=== PATIENT | male | born 1945 | race Caucasian/White ===

== ENCOUNTER 2019-06-02 20:46 | Emergency (ER) | payer OTHER, BC ==
[~2019-06-02] VITALS: Ht 188 cm; Wt 90.7 kg
[2019-06-02 20:53] VITALS: BP_SYST 147
[2019-06-02] MEDS ORDERED: LOSA1TAB40 PO (20:59)
[2019-06-02] MEDS ORDERED: AMLO5TAB4 PO (20:59)
[2019-06-02] MEDS ORDERED: IPRATROPIUM/ALBUTEROL SULFATE 3 ML AMPUL.NEB (DUONEB) INH ONE (21:00)
[2019-06-02 21:21] LABS: BASOPHILS % (AUTO) 0.3 % (0.0-2.0); EOSINOPHILS # (AUTO) 0.1 K/uL (0.0-0.4); EOSINOPHILS % (AUTO) 0.7 % (0.0-4.0); HEMATOCRIT 47.7 % (36-54); HEMOGLOBIN 15.5 g/dL (14.0-18.0); LYMPHOCYTES # (AUTO) 1.3 K/uL (1.0-5.5); LYMPHOCYTES % (AUTO) 10.5 % (20.5-51.5); MEAN CORPUSCULAR HEMOGLOBIN 31 pg (27-31); MEAN CORPUSCULAR HGB CONC 33 % (32-36); MEAN CORPUSCULAR VOLUME 95 fL (79.0-98.0); MONOCYTES # (AUTO) 1.1 K/uL (0.0-1.0); NEUTROPHILS # (AUTO) 9.6 K/uL (1.8-7.7); NEUTROPHILS % (AUTO) 79.5 % (40.0-70.0); PLATELET COUNT (AUTO) 304 K/uL (130-430); RED BLOOD CELL COUNT(AUTO) 5.05 MIL/uL (4.2-6.2); RED CELL DISTRIBUTION WIDTH 15.5 % (9.0-15.0); WHITE BLOOD COUNT (AUTO) 12.1 K/uL (4.8-10.8)
[2019-06-02 21:25] LABS: ANION GAP 9 (5-15); CALCIUM 8.9 mg/dL (8.4-11.0); CHLORIDE 97 mmol/L (98-107); CREATININE 1.01 mg/dL (0.55-1.30); GLUCOSE 103 mg/dL (70-99); SODIUM SERUM 137 mmol/L (136-145); UREA NITROGEN, BLOOD 15 mg/dL (8-21)
[2019-06-02 21:31] LABS: ALANINE AMINOTRANSFERASE 25 U/L (12-78); ASPARTATE AMINOTRANSFERASE 21 U/L (10-37); TOTAL BILIRUBIN 0.6 mg/dL (0.0-1.0)
[2019-06-02 21:33] LABS: BILIRUBIN,URINE NEGATIVE (NEGATIVE); BLOOD, URINE NEGATIVE (NEGATIVE); CLARITY/URINE CLEAR (CLEAR); COLOR,URINE YELLOW (YELLOW); GLUCOSE,URINE NEGATIVE (NEGATIVE); KETONES,URINE NEGATIVE (NEGATIVE); LEUKOCYTE ESTERASE ,URINE NEGATIVE (NEGATIVE); NITRITE, URINE NEGATIVE (NEGATIVE); PH,URINE 6.5 (5.0-8.0); PROTEIN URINE 1+ (NEGATIVE)
[2019-06-02 21:44] LABS: BACTERIA,URINE FEW /HPF (None Seen); RBC,URINE 0-3 /HPF (0-3); WBC,URINE 0-3 /HPF (0-3)
[2019-06-02 23:21] VITALS: BP_SYST 147
== END 2019-06-02 23:23 | disposition home or self-care (01) ==
LOC: SED 20:46
DX: L03.116 Cellulitis of left lower limb (principal); J18.9 Pneumonia, unspecified organism; I10 Essential (primary) hypertension; F17.210 Nicotine dependence, cigarettes, uncomplicated; Z85.828 Personal history of other malignant neoplasm of skin; Z79.899 Other long term (current) drug therapy; Z71.6 Tobacco abuse counseling
CPT/HCPCS: 36415; 71045; 80053; 81000; 83605; 83880; 85025; 87040; 87086; 93005; 94640; 96365; 96366; 99284; J1956; J7620

== ENCOUNTER 2019-07-25 11:24 | Inpatient (IN) | payer OTHER, BC ==
[~2019-07-25] VITALS: Ht 188 cm; Wt 151.5 kg
[~2019-07-25 11:24] MED LIST: AMLO5TAB4 PO; LOSA1TAB40 PO
[2019-07-25 11:30] VITALS: BP_SYST 140
[2019-07-25 12:30] LABS: BASOPHILS % (AUTO) 0.3 % (0.0-2.0); EOSINOPHILS # (AUTO) 0.2 K/uL (0.0-0.4); EOSINOPHILS % (AUTO) 1.3 % (0.0-4.0); HEMATOCRIT 45.3 % (36-54); LYMPHOCYTES % (AUTO) 7.3 % (20.5-51.5); MEAN CORPUSCULAR HEMOGLOBIN 31 pg (27-31); MEAN CORPUSCULAR HGB CONC 33 % (32-36); MEAN CORPUSCULAR VOLUME 94 fL (79.0-98.0); MONOCYTES # (AUTO) 1.2 K/uL (0.0-1.0); MONOCYTES % (AUTO) 9.2 % (1.7-9.3); NEUTROPHILS # (AUTO) 10.9 K/uL (1.8-7.7); NEUTROPHILS % (AUTO) 81.9 % (40.0-70.0); PLATELET COUNT (AUTO) 302 K/uL (130-430); RED BLOOD CELL COUNT(AUTO) 4.81 MIL/uL (4.2-6.2); RED CELL DISTRIBUTION WIDTH 15.1 % (9.0-15.0); WHITE BLOOD COUNT (AUTO) 13.3 K/uL (4.8-10.8)
[2019-07-25 12:43] LABS: ANION GAP 5 (5-15); CALCIUM 8.7 mg/dL (8.4-11.0); CHLORIDE 95 mmol/L (98-107); CREATININE 0.83 mg/dL (0.55-1.30); GLUCOSE 100 mg/dL (70-99); POTASSIUM 3.3 mmol/L (3.5-5.1); SODIUM SERUM 134 mmol/L (136-145); UREA NITROGEN, BLOOD 14 mg/dL (8-21)
[2019-07-25 12:46] LABS: INR 1.1 (0.80-1.20)
[2019-07-25 12:49] LABS: ALANINE AMINOTRANSFERASE 13 U/L (12-78); ALBUMIN 2.7 g/dL (3.4-4.8); ASPARTATE AMINOTRANSFERASE 17 U/L (10-37); TOTAL BILIRUBIN 0.4 mg/dL (0.0-1.0)
[2019-07-25 13:33] LABS: BILIRUBIN,URINE NEGATIVE (NEGATIVE); BLOOD, URINE NEGATIVE (NEGATIVE); CLARITY/URINE CLEAR (CLEAR); COLOR,URINE YELLOW (YELLOW); GLUCOSE,URINE NEGATIVE (NEGATIVE); KETONES,URINE NEGATIVE (NEGATIVE); LEUKOCYTE ESTERASE ,URINE NEGATIVE (NEGATIVE); NITRITE, URINE NEGATIVE (NEGATIVE); PROTEIN URINE TRACE (NEGATIVE)
[2019-07-25 13:39] LABS: BACTERIA,URINE FEW /HPF (None Seen); MUCUS,URINE 2+ /LPF (None Seen); RBC,URINE 0-3 /HPF (0-3); WBC,URINE 0-3 /HPF (0-3)
[2019-07-25] MEDS ORDERED: cefTRIAXone 1 GM IVPB PREMIX 50 ML IV ONE (14:45)
[2019-07-25 15:30] VITALS: BP_SYST 146
[2019-07-25] MEDS ORDERED: IPRATROPIUM BROM 0.5 MG/2.5 ML VIAL.NEB (ATROVENT) INH PRN (15:45)
[2019-07-25] MEDS ORDERED: FUROSEMIDE 20 MG/2 ML VIAL IVP ONE (15:45)
[2019-07-25] MEDS ORDERED: ALBUTEROL SULFATE 0.083% 2.5 MG/3 ML VIAL.NEB INH PRN (15:45)
[2019-07-25] MEDS ORDERED: NICOTINE 21 MG/24 HR PATCH.TD24 TD ONE (15:45)
[2019-07-25 15:46] VITALS: BP_SYST 141
[2019-07-25] MEDS: cefTRIAXone 1 GM in D5W 50 ML IV SCH (16:00)
[2019-07-25] MEDS ORDERED: VANCOMYCIN HCL 2,000 MG in NS 500 ML IV ONE (17:00)
[2019-07-25] MEDS: AZITHROMYCIN 500 MG in NS 250 ML IV SCH (17:31)
[2019-07-25] MEDS: ALBUTEROL SULFATE 0.083% 2.5 MG/3 ML VIAL.NEB INH SCH (19:42)
[2019-07-25] MEDS: IPRATROPIUM BROM 0.5 MG/2.5 ML VIAL.NEB (ATROVENT) INH SCH (19:42)
[2019-07-25 20:15] VITALS: BP_SYST 144
[2019-07-25] MEDS ORDERED: ENOXAPARIN SODIUM 40 MG/0.4 ML SYRINGE SUBCUT SCH (21:00)
[2019-07-25] MEDS: methylPREDNISolone SOD SUCC/PF 62.5 MG/ML VIAL IVP SCH (21:17)
[2019-07-26] MEDS: ALBUTEROL SULFATE 0.083% 2.5 MG/3 ML VIAL.NEB INH SCH ×4 (00:26→20:41)
[2019-07-26] MEDS: IPRATROPIUM BROM 0.5 MG/2.5 ML VIAL.NEB (ATROVENT) INH SCH ×4 (00:26→20:41)
[2019-07-26 01:12] VITALS: BP_SYST 134
[2019-07-26] MEDS: methylPREDNISolone SOD SUCC/PF 62.5 MG/ML VIAL IVP SCH ×3 (05:37→21:27)
[2019-07-26] MEDS: VANCOMYCIN HCL 1,500 MG in NS 250 ML IV SCH ×2 (05:37→16:00)
[2019-07-26] MEDS: FUROSEMIDE 20 MG/2 ML VIAL IVP SCH ×2 (05:42→18:09)
[2019-07-26 07:03] LABS: ANION GAP 5 (5-15); CALCIUM 8.7 mg/dL (8.4-11.0); CHLORIDE 96 mmol/L (98-107); CREATININE 0.85 mg/dL (0.55-1.30); GLUCOSE 142 mg/dL (70-99); POTASSIUM 3.6 mmol/L (3.5-5.1); SODIUM SERUM 136 mmol/L (136-145); UREA NITROGEN, BLOOD 13 mg/dL (8-21)
[2019-07-26 07:44] VITALS: BP_SYST 126
[2019-07-26] MEDS: NICOTINE 21 MG/24 HR PATCH.TD24 TD SCH (08:16)
[2019-07-26] MEDS ORDERED: ENOXAPARIN SODIUM 40 MG/0.4 ML SYRINGE SUBCUT ONE (09:30)
[2019-07-26] MEDS: BALSAM PERU/CASTOR OIL 60 GM OINT...G. TP SCH (13:20)
[2019-07-26 14:39] VITALS: BP_SYST 147
[2019-07-26] MEDS: cefTRIAXone 1 GM in D5W 50 ML IV SCH (15:05)
[2019-07-26] MEDS ORDERED: NON-FORMULARY MEDICATION (Losartan/Hctz* (Losartan-Hctz 100-25 Mg Tab*) 1 EACH) PO SCH (16:30)
[2019-07-26] MEDS ORDERED: HYDROCHLOROTHIAZIDE 25 MG TABLET (HCTZ) PO ONE (16:45)
[2019-07-26] MEDS ORDERED: LOSARTAN POTASSIUM 50 MG TABLET (COZAAR) PO ONE (16:45)
[2019-07-26 17:15] VITALS: BP_SYST 122
[2019-07-26] MEDS: AZITHROMYCIN 500 MG in NS 250 ML IV SCH (18:09)
[2019-07-26 19:52] VITALS: BP_SYST 158
[2019-07-27] MEDS: IPRATROPIUM BROM 0.5 MG/2.5 ML VIAL.NEB (ATROVENT) INH SCH ×4 (01:00→20:32)
[2019-07-27] MEDS: ALBUTEROL SULFATE 0.083% 2.5 MG/3 ML VIAL.NEB INH SCH ×4 (01:00→20:31)
[2019-07-27 01:12] VITALS: BP_SYST 140
[2019-07-27] MEDS: methylPREDNISolone SOD SUCC/PF 62.5 MG/ML VIAL IVP SCH ×3 (05:10→21:34)
[2019-07-27] MEDS: VANCOMYCIN HCL 1,500 MG in NS 250 ML IV SCH ×2 (05:11→17:19)
[2019-07-27] MEDS: FUROSEMIDE 20 MG/2 ML VIAL IVP SCH ×2 (05:14→17:22)
[2019-07-27 06:20] LABS: HEMATOCRIT 44.3 % (36-54); HEMOGLOBIN 14.7 g/dL (14.0-18.0); MEAN CORPUSCULAR HEMOGLOBIN 31 pg (27-31); MEAN CORPUSCULAR HGB CONC 33 % (32-36); MEAN CORPUSCULAR VOLUME 95 fL (79.0-98.0); PLATELET COUNT (AUTO) 300 K/uL (130-430); RED BLOOD CELL COUNT(AUTO) 4.67 MIL/uL (4.2-6.2); WHITE BLOOD COUNT (AUTO) 17.6 K/uL (4.8-10.8)
[2019-07-27 06:30] LABS: ALANINE AMINOTRANSFERASE 12 U/L (12-78); ALBUMIN 2.4 g/dL (3.4-4.8); ANION GAP < 3 (5-15); ASPARTATE AMINOTRANSFERASE 17 U/L (10-37); CALCIUM 8.7 mg/dL (8.4-11.0); CHLORIDE 95 mmol/L (98-107); CREATININE 0.84 mg/dL (0.55-1.30); GLUCOSE 161 mg/dL (70-99); POTASSIUM 3.5 mmol/L (3.5-5.1); SODIUM SERUM 132 mmol/L (136-145); TOTAL BILIRUBIN 0.2 mg/dL (0.0-1.0); UREA NITROGEN, BLOOD 21 mg/dL (8-21)
[2019-07-27 07:52] VITALS: BP_SYST 145
[2019-07-27] MEDS: NICOTINE 21 MG/24 HR PATCH.TD24 TD SCH (08:40)
[2019-07-27 08:46] LABS: BAND % (MANUAL) 0 % (0-6); BASOPHILS % (MANUAL) 0 % (0-2); EOSINOPHILS % (MANUAL) 0 % (0-7); LYMPHOCYTES % (MANUAL) 7 % (20-46); MONOCYTES % (MANUAL) 2 % (0-11)
[2019-07-27] MEDS: LOSARTAN POTASSIUM 50 MG TABLET (COZAAR) PO SCH (08:46)
[2019-07-27] MEDS: HYDROCHLOROTHIAZIDE 25 MG TABLET (HCTZ) PO SCH (08:46)
[2019-07-27] MEDS: ENOXAPARIN SODIUM 40 MG/0.4 ML SYRINGE SUBCUT SCH (08:47)
[2019-07-27] MEDS: BALSAM PERU/CASTOR OIL 60 GM OINT...G. TP SCH (11:43)
[2019-07-27] MEDS: MINERAL OIL/PETROLATUM,WHITE 113 GM CREAM.GM. TP SCH (11:44)
[2019-07-27 12:41] VITALS: BP_SYST 140
[2019-07-27 13:05] LABS: VANCOMYCIN,TROUGH 10.9 ug/mL (5.0-10.0)
[2019-07-27] MEDS: cefTRIAXone 1 GM in D5W 50 ML IV SCH (15:14)
[2019-07-27] MEDS: AZITHROMYCIN 500 MG in NS 250 ML IV SCH (15:50)
[2019-07-27 16:41] VITALS: BP_SYST 148
[2019-07-27 20:21] VITALS: BP_SYST 139
[2019-07-28] MEDS: ALBUTEROL SULFATE 0.083% 2.5 MG/3 ML VIAL.NEB INH SCH ×3 (01:00→14:04)
[2019-07-28] MEDS: IPRATROPIUM BROM 0.5 MG/2.5 ML VIAL.NEB (ATROVENT) INH SCH ×3 (01:00→14:04)
[2019-07-28 01:25] VITALS: BP_SYST 138
[2019-07-28] MEDS: methylPREDNISolone SOD SUCC/PF 62.5 MG/ML VIAL IVP SCH (05:05)
[2019-07-28] MEDS: VANCOMYCIN HCL 1,500 MG in NS 250 ML IV SCH ×2 (05:05→17:01)
[2019-07-28] MEDS: FUROSEMIDE 20 MG/2 ML VIAL IVP SCH ×2 (05:09→18:25)
[2019-07-28 06:06] LABS: BASOPHILS % (AUTO) 0.1 % (0.0-2.0); HEMATOCRIT 46.5 % (36-54); HEMOGLOBIN 15.3 g/dL (14.0-18.0); LYMPHOCYTES # (AUTO) 0.5 K/uL (1.0-5.5); LYMPHOCYTES % (AUTO) 2.7 % (20.5-51.5); MEAN CORPUSCULAR HEMOGLOBIN 31 pg (27-31); MEAN CORPUSCULAR HGB CONC 33 % (32-36); MEAN CORPUSCULAR VOLUME 95 fL (79.0-98.0); MONOCYTES # (AUTO) 1.2 K/uL (0.0-1.0); MONOCYTES % (AUTO) 6.4 % (1.7-9.3); NEUTROPHILS # (AUTO) 17.1 K/uL (1.8-7.7); NEUTROPHILS % (AUTO) 90.8 % (40.0-70.0); PLATELET COUNT (AUTO) 318 K/uL (130-430); RED BLOOD CELL COUNT(AUTO) 4.88 MIL/uL (4.2-6.2); WHITE BLOOD COUNT (AUTO) 18.9 K/uL (4.8-10.8)
[2019-07-28 06:47] LABS: ANION GAP 2 (5-15); CALCIUM 8.8 mg/dL (8.4-11.0); CHLORIDE 96 mmol/L (98-107); CREATININE 0.97 mg/dL (0.55-1.30); GLUCOSE 166 mg/dL (70-99); POTASSIUM 3.6 mmol/L (3.5-5.1); SODIUM SERUM 136 mmol/L (136-145); UREA NITROGEN, BLOOD 26 mg/dL (8-21)
[2019-07-28 07:07] VITALS: BP_SYST 144
[2019-07-28 08:11] VITALS: BP_SYST 144
[2019-07-28] MEDS: HYDROCHLOROTHIAZIDE 25 MG TABLET (HCTZ) PO SCH (08:47)
[2019-07-28] MEDS: ENOXAPARIN SODIUM 40 MG/0.4 ML SYRINGE SUBCUT SCH (08:47)
[2019-07-28] MEDS: NICOTINE 21 MG/24 HR PATCH.TD24 TD SCH ×2 (08:48→08:55)
[2019-07-28] MEDS: LOSARTAN POTASSIUM 50 MG TABLET (COZAAR) PO SCH (08:48)
[2019-07-28] MEDS: MINERAL OIL/PETROLATUM,WHITE 113 GM CREAM.GM. TP SCH (08:50)
[2019-07-28] MEDS: BALSAM PERU/CASTOR OIL 60 GM OINT...G. TP SCH (08:50)
[2019-07-28 12:54] VITALS: BP_SYST 112
[2019-07-28 16:59] VITALS: BP_SYST 127
[2019-07-28] MEDS: cefTRIAXone 1 GM in D5W 50 ML IV SCH (17:01)
[2019-07-28 18:06] VITALS: BP_SYST 127
[2019-07-28] MEDS: AZITHROMYCIN 500 MG in NS 250 ML IV SCH (18:24)
[2019-07-28] MEDS ORDERED: PREDNISONE 20 MG TABLET PO SCH (21:00)
== END 2019-07-28 20:35 | DRG 291 ==
LOC: SED 11:24 → STU 14:39
PROVIDERS: ADMIT Internal Medicine Hospice and Palliative Medicine; ATTEND Internal Medicine Hospice and Palliative Medicine
DX: I11.0 Hypertensive heart disease with heart failure (principal); J96.01 Acute respiratory failure with hypoxia; I50.31 Acute diastolic (congestive) heart failure; R65.11 Systemic inflammatory response syndrome (SIRS) of non-infectious origin with acute organ dysfunction; L03.116 Cellulitis of left lower limb; J44.1 Chronic obstructive pulmonary disease with (acute) exacerbation; L03.115 Cellulitis of right lower limb; E66.9 Obesity, unspecified; F17.210 Nicotine dependence, cigarettes, uncomplicated; Z85.828 Personal history of other malignant neoplasm of skin; Z79.899 Other long term (current) drug therapy
CPT/HCPCS: 36415; 36600; 71045; 71250-TC; 80048; 80053; 80202-TC; 81000-TC; 82803-TC; 83605; 83615-TC; 83880; 84484; 85007; 85025; 85027; 85610-TC; 85651-TC; 85730-TC; 87040-TC; 87086; 93005; 93306; 93923; 93970; 94640; 94760; 96365; 99285; G0378; J0456; J0696; J1650; J1940; J2930; J3370; J7040; J7050; J7060; J7613

== ENCOUNTER 2019-09-09 09:39 | Emergency (ER) | payer OTHER, BC ==
[~2019-09-09] VITALS: Ht 188 cm; Wt 140.6 kg
[2019-09-09 09:39] VITALS: BP_SYST 144
[~2019-09-09 09:39] MED LIST changes: -AMLO5TAB4 PO
[2019-09-09 10:26] LABS: BASOPHILS % (AUTO) 0.2 % (0.0-2.0); EOSINOPHILS % (AUTO) 0.1 % (0.0-4.0); HEMATOCRIT 46.3 % (36-54); HEMOGLOBIN 15.4 g/dL (14.0-18.0); LYMPHOCYTES # (AUTO) 0.6 K/uL (1.0-5.5); MEAN CORPUSCULAR HEMOGLOBIN 32 pg (27-31); MEAN CORPUSCULAR HGB CONC 33 % (32-36); MEAN CORPUSCULAR VOLUME 95 fL (79.0-98.0); MONOCYTES # (AUTO) 0.7 K/uL (0.0-1.0); MONOCYTES % (AUTO) 4.5 % (1.7-9.3); NEUTROPHILS # (AUTO) 13.3 K/uL (1.8-7.7); NEUTROPHILS % (AUTO) 91.2 % (40.0-70.0); PLATELET COUNT (AUTO) 241 K/uL (130-430); RED BLOOD CELL COUNT(AUTO) 4.88 MIL/uL (4.2-6.2); RED CELL DISTRIBUTION WIDTH 15.7 % (9.0-15.0); WHITE BLOOD COUNT (AUTO) 14.6 K/uL (4.8-10.8)
[2019-09-09 10:35] LABS: ANION GAP 3 (5-15); CALCIUM 8.9 mg/dL (8.4-11.0); CHLORIDE 100 mmol/L (98-107); GLUCOSE 131 mg/dL (70-99); POTASSIUM 3.7 mmol/L (3.5-5.1); SODIUM SERUM 136 mmol/L (136-145); UREA NITROGEN, BLOOD 40 mg/dL (8-21)
[2019-09-09 10:38] LABS: INR 1.1 (0.80-1.20); PROTHROMBIN TIME 11.2 SECS (9.5-12.5)
[2019-09-09 10:41] LABS: ALANINE AMINOTRANSFERASE 29 U/L (12-78); ALBUMIN 3.1 g/dL (3.4-4.8); ASPARTATE AMINOTRANSFERASE 17 U/L (10-37); TOTAL BILIRUBIN 0.5 mg/dL (0.0-1.0)
[2019-09-09 12:10] LABS: BILIRUBIN,URINE NEGATIVE (NEGATIVE); BLOOD, URINE NEGATIVE (NEGATIVE); CLARITY/URINE SL HAZY (CLEAR); COLOR,URINE YELLOW (YELLOW); GLUCOSE,URINE NEGATIVE (NEGATIVE); KETONES,URINE NEGATIVE (NEGATIVE); LEUKOCYTE ESTERASE ,URINE NEGATIVE (NEGATIVE); NITRITE, URINE NEGATIVE (NEGATIVE); PROTEIN URINE NEGATIVE (NEGATIVE); UROBILINOGEN,URINE 0.2 (0.2-1.0)
[2019-09-09] MEDS ORDERED: IOHEXOL 350 mgI/mL, 150 ML INFUS..BTL IV ONE (12:21)
[2019-09-09] MEDS ORDERED: FURO-149 PO (13:15)
[2019-09-09] MEDS ORDERED: PRED10TA PO (13:15)
[2019-09-09] MEDS ORDERED: PRED20TA PO (13:15)
[2019-09-09 13:47] VITALS: BP_SYST 146
== END 2019-09-09 13:47 | disposition home or self-care (01) ==
LOC: SED 09:39
DX: R60.0 Localized edema (principal); J44.9 Chronic obstructive pulmonary disease, unspecified; R09.02 Hypoxemia; I10 Essential (primary) hypertension; Z79.899 Other long term (current) drug therapy
CPT/HCPCS: 36415; 36600; 71045; 71275; 80053; 81003; 82803; 83605; 83880; 84484; 85025; 85379; 85610; 85730; 87040; 87086; 93005; 93971; 99284; Q9967

== ENCOUNTER 2019-09-12 08:23 | Emergency (ER) | payer OTHER, BC ==
[~2019-09-12] VITALS: Ht 188 cm; Wt 140.6 kg
[~2019-09-12 08:23] MED LIST changes: +FURO-149 PO; +PRED10TA PO; +PRED20TA PO
--- NOTE | 2019-09-12 08:30 | NUR ---
Called patient back. He wants to wait for his who is in the bathroom.
--- NOTE | 2019-09-12 08:30 | NUR ---
Ralph erwin in ED - 09/12/19 at 0830 by SELVIN Called patient back. He wants to wait for his who is in the bathroom.
[2019-09-12 08:35] VITALS: BP_SYST 129
--- NOTE | 2019-09-12 08:35 | NUR ---
Patient to ER bed 3 to gown for evaluation. Side rails up. Report given to RAZA Christine.
--- NOTE | 2019-09-12 08:36 | NUR ---
Patient is awake, alert, and oriented x4. is at bedside. Patient is complaining of swelling and weeping to his right arm since Ricky with some right shoulder pain.
--- NOTE | 2019-09-12 08:50 | NUR ---
PARISA Floyd at bedside examining patient.
--- NOTE | 2019-09-12 09:42 | NUR ---
Executive Assistant at bedside.
[2019-09-12 09:59] LABS: BASOPHILS # (AUTO) 0.1 K/uL (0.0-0.2); BASOPHILS % (AUTO) 0.6 % (0.0-2.0); EOSINOPHILS % (AUTO) 0.3 % (0.0-4.0); HEMATOCRIT 42.7 % (36-54); HEMOGLOBIN 14.2 g/dL (14.0-18.0); LYMPHOCYTES # (AUTO) 0.7 K/uL (1.0-5.5); LYMPHOCYTES % (AUTO) 4.2 % (20.5-51.5); MEAN CORPUSCULAR HEMOGLOBIN 31 pg (27-31); MEAN CORPUSCULAR HGB CONC 33 % (32-36); MEAN CORPUSCULAR VOLUME 94 fL (79.0-98.0); NEUTROPHILS # (AUTO) 14.8 K/uL (1.8-7.7); NEUTROPHILS % (AUTO) 88.9 % (40.0-70.0); PLATELET COUNT (AUTO) 223 K/uL (130-430); RED BLOOD CELL COUNT(AUTO) 4.53 MIL/uL (4.2-6.2); RED CELL DISTRIBUTION WIDTH 16.1 % (9.0-15.0); WHITE BLOOD COUNT (AUTO) 16.6 K/uL (4.8-10.8)
[2019-09-12 10:10] LABS: ANION GAP 3 (5-15); CALCIUM 8.4 mg/dL (8.4-11.0); CHLORIDE 100 mmol/L (98-107); CREATININE 0.91 mg/dL (0.55-1.30); GLUCOSE 122 mg/dL (70-99); POTASSIUM 3.5 mmol/L (3.5-5.1); SODIUM SERUM 136 mmol/L (136-145); UREA NITROGEN, BLOOD 24 mg/dL (8-21)
[2019-09-12 10:15] LABS: ALANINE AMINOTRANSFERASE 24 U/L (12-78); ALBUMIN 2.7 g/dL (3.4-4.8); ASPARTATE AMINOTRANSFERASE 29 U/L (10-37); TOTAL BILIRUBIN 0.6 mg/dL (0.0-1.0)
--- NOTE | 2019-09-12 11:07 | NUR ---
Patient placed on O2 @ 2LPM via NC.
[2019-09-12 13:32] VITALS: BP_SYST 158
--- NOTE | 2019-09-12 13:32 | NUR ---
Patient given written and verbal discharge instructions and verbalizes understanding. ER MD discussed with patient the results and treatment provided. Patient in stable condition. ID arm band removed. IV catheter removed intact and dressing applied, no active bleeding. Rx of levaquin given. Patient educated on pain management and to follow up with PMD. Pain Scale 0/10. Opportunity for questions provided and answered. Medication side effect fact sheet provided.
== END 2019-09-12 13:32 | disposition home or self-care (01) ==
LOC: SED 08:23
DX: L03.113 Cellulitis of right upper limb (principal); I10 Essential (primary) hypertension; J44.9 Chronic obstructive pulmonary disease, unspecified; F17.210 Nicotine dependence, cigarettes, uncomplicated; Z79.899 Other long term (current) drug therapy
CPT/HCPCS: 36415; 80053; 83605; 85025; 87040; 96365; 99283; J1956

== ENCOUNTER 2019-09-18 17:43 | Inpatient (IN) | payer OTHER, BC ==
[~2019-09-18] VITALS: Ht 188 cm; Wt 138.8 kg
[2019-09-18 17:59] VITALS: BP_SYST 112
[2019-09-18] MEDS ORDERED: VANCOMYCIN HCL 1,000 MG in NS 250 ML IV ONE (18:30)
[2019-09-18 18:43] LABS: BASOPHILS # (AUTO) 0.2 K/uL (0.0-0.2); BASOPHILS % (AUTO) 1.2 % (0.0-2.0); EOSINOPHILS % (AUTO) 0.3 % (0.0-4.0); HEMATOCRIT 40.9 % (36-54); HEMOGLOBIN 13.7 g/dL (14.0-18.0); LYMPHOCYTES # (AUTO) 1.4 K/uL (1.0-5.5); MEAN CORPUSCULAR HEMOGLOBIN 32 pg (27-31); MEAN CORPUSCULAR HGB CONC 34 % (32-36); MEAN CORPUSCULAR VOLUME 95 fL (79.0-98.0); MONOCYTES # (AUTO) 1.1 K/uL (0.0-1.0); MONOCYTES % (AUTO) 7.9 % (1.7-9.3); NEUTROPHILS % (AUTO) 80.6 % (40.0-70.0); PLATELET COUNT (AUTO) 317 K/uL (130-430); RED BLOOD CELL COUNT(AUTO) 4.31 MIL/uL (4.2-6.2); RED CELL DISTRIBUTION WIDTH 16.1 % (9.0-15.0); WHITE BLOOD COUNT (AUTO) 13.6 K/uL (4.8-10.8)
[2019-09-18 18:57] LABS: ANION GAP 4 (5-15); CALCIUM 8.5 mg/dL (8.4-11.0); CHLORIDE 99 mmol/L (98-107); CREATININE 0.96 mg/dL (0.55-1.30); GLUCOSE 90 mg/dL (70-99); SODIUM SERUM 135 mmol/L (136-145); UREA NITROGEN, BLOOD 23 mg/dL (8-21)
[2019-09-18 19:03] LABS: ALANINE AMINOTRANSFERASE 21 U/L (12-78); ALBUMIN 2.5 g/dL (3.4-4.8); ASPARTATE AMINOTRANSFERASE 15 U/L (10-37); TOTAL BILIRUBIN 0.4 mg/dL (0.0-1.0)
[2019-09-18] MEDS ORDERED: VANCOMYCIN HCL 1000 MG/VIAL IV ONE ×4 (19:04→22:00)
[2019-09-18] MEDS ORDERED: ACETAMINOPHEN 325 MG TABLET PO PRN (19:30)
[2019-09-18] MEDS ORDERED: MORPHINE 4 MG/ML INJ. SYRINGE IVP PRN (19:30)
[2019-09-18] MEDS ORDERED: ONDANSETRON HCL 4 MG/2 ML VIAL IVP PRN (19:30)
[2019-09-18] MEDS ORDERED: METOCLOPRAMIDE HCL 10 MG/2 ML VIAL IVP PRN (19:30)
[2019-09-18] MEDS ORDERED: MORPHINE 2 MG/ML INJ. SYRINGE IVP PRN (19:30)
[2019-09-18] MEDS ORDERED: PIPERACILLIN/TAZO 3.375 GM in NS 50 ML IV ONE (19:30)
[2019-09-18 21:03] VITALS: BP_SYST 139
[2019-09-18] MEDS ORDERED: PIPERACILLIN/TAZOBACTAM 3.375 GM/VIAL (ZOSYN) IV ONE (22:00)
[2019-09-18] MEDS: PREDNISONE 10 MG TABLET PO SCH (23:30)
[2019-09-19 00:23] VITALS: BP_SYST 135
[2019-09-19] MEDS ORDERED: VANCOMYCIN HCL 1,750 MG in NS 500 ML IV SCH (03:00)
[2019-09-19 07:56] VITALS: BP_SYST 127
[2019-09-19] MEDS: PREDNISONE 20 MG TABLET PO SCH (08:34)
[2019-09-19] MEDS: LOSARTAN POTASSIUM 50 MG TABLET (COZAAR) PO SCH (08:35)
[2019-09-19] MEDS: FUROSEMIDE 40 MG TABLET PO SCH (08:35)
[2019-09-19] MEDS: HYDROCHLOROTHIAZIDE 25 MG TABLET (HCTZ) PO SCH (08:36)
[2019-09-19] MEDS ORDERED: ALBUTEROL SULFATE 0.083% 2.5 MG/3 ML VIAL.NEB INH ONE (09:00)
[2019-09-19] MEDS ORDERED: IPRATROPIUM BROM 0.5 MG/2.5 ML VIAL.NEB (ATROVENT) INH PRN (09:00)
[2019-09-19] MEDS ORDERED: IPRATROPIUM BROM 0.5 MG/2.5 ML VIAL.NEB (ATROVENT) INH ONE (09:00)
[2019-09-19] MEDS ORDERED: ALBUTEROL SULFATE 0.083% 2.5 MG/3 ML VIAL.NEB INH PRN (09:00)
[2019-09-19 11:31] VITALS: BP_SYST 127
[2019-09-19 15:31] VITALS: BP_SYST 118
[2019-09-19] MEDS: ALBUTEROL SULFATE 0.083% 2.5 MG/3 ML VIAL.NEB INH SCH ×3 (15:36→23:00)
[2019-09-19] MEDS: IPRATROPIUM BROM 0.5 MG/2.5 ML VIAL.NEB (ATROVENT) INH SCH ×3 (15:36→23:00)
[2019-09-19] MEDS: VANCOMYCIN HCL 1,750 MG in NS 500 ML IV SCH (17:33)
[2019-09-19 19:36] VITALS: BP_SYST 116
[2019-09-19] MEDS: PREDNISONE 10 MG TABLET PO SCH (20:37)
[2019-09-19] MEDS: CLINDAMYCIN 600 MG in D5W 50 ML IV SCH (21:29)
[2019-09-20] VITALS (7 sets, daily range): BP systolic 105–136
[2019-09-20] MEDS: CLINDAMYCIN 600 MG in D5W 50 ML IV SCH ×5 (02:23→23:40)
[2019-09-20] MEDS: ALBUTEROL SULFATE 0.083% 2.5 MG/3 ML VIAL.NEB INH SCH ×6 (03:00→23:48)
[2019-09-20] MEDS: IPRATROPIUM BROM 0.5 MG/2.5 ML VIAL.NEB (ATROVENT) INH SCH ×6 (03:00→23:48)
[2019-09-20] MEDS: VANCOMYCIN HCL 1,750 MG in NS 500 ML IV SCH (05:07)
[2019-09-20 07:13] LABS: ANION GAP 0 (5-15); CALCIUM 8.5 mg/dL (8.4-11.0); CHLORIDE 99 mmol/L (98-107); CREATININE 0.93 mg/dL (0.55-1.30); GLUCOSE 120 mg/dL (70-99); POTASSIUM 3.5 mmol/L (3.5-5.1); SODIUM SERUM 135 mmol/L (136-145); UREA NITROGEN, BLOOD 22 mg/dL (8-21)
[2019-09-20] MEDS: HYDROCHLOROTHIAZIDE 25 MG TABLET (HCTZ) PO SCH (08:23)
[2019-09-20] MEDS: LOSARTAN POTASSIUM 50 MG TABLET (COZAAR) PO SCH (08:23)
[2019-09-20] MEDS: FUROSEMIDE 40 MG TABLET PO SCH (08:24)
[2019-09-20] MEDS: PREDNISONE 20 MG TABLET PO SCH (08:24)
[2019-09-20] MEDS ORDERED: EMOLLIENT COMBINATION NO.73 78 GM CREAM..G. TP SCH (15:15)
[2019-09-20] MEDS: VANCOMYCIN HCL 1,500 MG in NS 250 ML IV SCH (18:20)
[2019-09-20] MEDS: PREDNISONE 10 MG TABLET PO SCH (23:40)
[2019-09-20] MEDS: MUPIROCIN 2% TOPICAL OINTMENT 22 GM NS SCH (23:40)
[2019-09-21 01:56] VITALS: BP_SYST 118
[2019-09-21] MEDS: IPRATROPIUM BROM 0.5 MG/2.5 ML VIAL.NEB (ATROVENT) INH SCH ×3 (03:00→11:00)
[2019-09-21] MEDS: ALBUTEROL SULFATE 0.083% 2.5 MG/3 ML VIAL.NEB INH SCH ×3 (03:00→11:00)
[2019-09-21] MEDS: VANCOMYCIN HCL 1,500 MG in NS 250 ML IV SCH (03:57)
[2019-09-21] MEDS: CLINDAMYCIN 600 MG in D5W 50 ML IV SCH ×2 (06:32→13:24)
[2019-09-21 07:37] VITALS: BP_SYST 132
[2019-09-21] MEDS: PREDNISONE 20 MG TABLET PO SCH (09:11)
[2019-09-21] MEDS: LOSARTAN POTASSIUM 50 MG TABLET (COZAAR) PO SCH (09:12)
[2019-09-21] MEDS: HYDROCHLOROTHIAZIDE 25 MG TABLET (HCTZ) PO SCH (09:12)
[2019-09-21] MEDS: FUROSEMIDE 40 MG TABLET PO SCH (09:13)
[2019-09-21] MEDS: MUPIROCIN 2% TOPICAL OINTMENT 22 GM NS SCH (09:13)
[2019-09-21 12:39] VITALS: BP_SYST 145
[2019-09-21 16:25] VITALS: BP_SYST 145
[2019-09-21 16:43] VITALS: BP_SYST 145
[2019-09-21] MEDS ORDERED: VANC1.5P12 IV (17:02)
== END 2019-09-21 17:27 | DRG 603 ==
LOC: SED 17:43 → SMU 19:25
PROVIDERS: ADMIT Internal Medicine Hospice and Palliative Medicine; ATTEND Internal Medicine Hospice and Palliative Medicine
DX: L03.113 Cellulitis of right upper limb (principal); J96.10 Chronic respiratory failure, unspecified whether with hypoxia or hypercapnia; E44.0 Moderate protein-calorie malnutrition; J44.9 Chronic obstructive pulmonary disease, unspecified; B95.62 Methicillin resistant Staphylococcus aureus infection as the cause of diseases classified elsewhere; F17.210 Nicotine dependence, cigarettes, uncomplicated; G89.29 Other chronic pain; E66.9 Obesity, unspecified; I87.2 Venous insufficiency (chronic) (peripheral); I10 Essential (primary) hypertension; Z99.81 Dependence on supplemental oxygen; Z68.39 Body mass index [BMI] 39.0-39.9, adult; Z79.899 Other long term (current) drug therapy; Z85.828 Personal history of other malignant neoplasm of skin
CPT/HCPCS: 36415; 71045; 73090; 80048; 80053; 80202-TC; 83605; 85025; 85651-TC; 87040-TC; 87070-TC; 87081; 87186-TC; 94640; 94760; 96365; 96366; 99285; J2543; J3370; J3490; J7040; J7050; J7060; J7512; J7613

== ENCOUNTER 2019-09-29 19:10 | Inpatient (IN) | payer OTHER, BC ==
[~2019-09-29] VITALS: Ht 188 cm; Wt 145.6 kg
[~2019-09-29 19:10] MED LIST changes: +VANC1.5P12 IV
[2019-09-29 19:14] VITALS: BP_SYST 136
[2019-09-29 19:56] LABS: BILIRUBIN,URINE NEGATIVE (NEGATIVE); BLOOD, URINE NEGATIVE (NEGATIVE); CLARITY/URINE CLEAR (CLEAR); COLOR,URINE YELLOW (YELLOW); GLUCOSE,URINE NEGATIVE (NEGATIVE); KETONES,URINE NEGATIVE (NEGATIVE); LEUKOCYTE ESTERASE ,URINE NEGATIVE (NEGATIVE); NITRITE, URINE NEGATIVE (NEGATIVE); PROTEIN URINE NEGATIVE (NEGATIVE); UROBILINOGEN,URINE 0.2 (0.2-1.0)
[2019-09-29 20:03] LABS: BASOPHILS # (AUTO) 0.1 K/uL (0.0-0.2); BASOPHILS % (AUTO) 0.3 % (0.0-2.0); EOSINOPHILS % (AUTO) 0.1 % (0.0-4.0); HEMOGLOBIN 13.6 g/dL (14.0-18.0); LYMPHOCYTES # (AUTO) 0.9 K/uL (1.0-5.5); LYMPHOCYTES % (AUTO) 5.7 % (20.5-51.5); MEAN CORPUSCULAR HEMOGLOBIN 32 pg (27-31); MEAN CORPUSCULAR HGB CONC 34 % (32-36); MEAN CORPUSCULAR VOLUME 93 fL (79.0-98.0); MONOCYTES % (AUTO) 6.3 % (1.7-9.3); NEUTROPHILS # (AUTO) 14.1 K/uL (1.8-7.7); NEUTROPHILS % (AUTO) 87.6 % (40.0-70.0); PLATELET COUNT (AUTO) 401 K/uL (130-430); RED BLOOD CELL COUNT(AUTO) 4.31 MIL/uL (4.2-6.2); RED CELL DISTRIBUTION WIDTH 15.6 % (9.0-15.0); WHITE BLOOD COUNT (AUTO) 16.1 K/uL (4.8-10.8)
[2019-09-29 20:06] LABS: ANION GAP 5 (5-15); CALCIUM 8.6 mg/dL (8.4-11.0); CHLORIDE 97 mmol/L (98-107); CREATININE 1.26 mg/dL (0.55-1.30); GLUCOSE 144 mg/dL (70-99); SODIUM SERUM 135 mmol/L (136-145); UREA NITROGEN, BLOOD 31 mg/dL (8-21)
[2019-09-29 20:12] LABS: ALANINE AMINOTRANSFERASE 22 U/L (12-78); ALBUMIN 2.6 g/dL (3.4-4.8); ASPARTATE AMINOTRANSFERASE 17 U/L (10-37); TOTAL BILIRUBIN 0.3 mg/dL (0.0-1.0)
[2019-09-29 20:17] LABS: PROTHROMBIN TIME 10.4 SECS (9.5-12.5)
[2019-09-29] MEDS ORDERED: ENOXAPARIN SODIUM 120 MG/0.8 ML SYRINGE SUBCUT ONE (21:30)
[2019-09-29] MEDS ORDERED: ACETAMINOPHEN 500 MG TABLET PO PRN (22:45)
[2019-09-29] MEDS ORDERED: HYDROcodone/ACETAMIN 7.5-325 MG TAB PO PRN (22:45)
[2019-09-29] MEDS ORDERED: MORPHINE 2 MG/ML INJ. SYRINGE IVP PRN (22:45)
[2019-09-29] MEDS ORDERED: *LOVENOX 1MG/KG Q12H/PHARMACY XX ONE (22:45)
[2019-09-29] MEDS ORDERED: DOCUSATE SODIUM 100 MG/10 ML UDC PO PRN (22:45)
[2019-09-29] MEDS ORDERED: cefTRIAXone 1 GM in D5W 50 ML IV SCH (22:45)
[2019-09-29] MEDS ORDERED: ONDANSETRON HCL 4 MG/2 ML VIAL IVP PRN (22:45)
[2019-09-29 22:50] VITALS: BP_SYST 177
[2019-09-29 23:39] LABS: PHOSPHORUS 4.3 mg/dL (2.7-4.5)
[2019-09-30 00:01] LABS: FREE T4 (FREE THYROXINE) 1.1 ng/dL (0.6-1.6); THYROID STIMULATING HORMONE 1.8 uIu/mL (0.34-4.82)
[2019-09-30] MEDS ORDERED: LISINOPRIL 10 MG TABLET (PRINIVIL) PO SCH (01:30)
[2019-09-30] MEDS: NACL 0.9% 1,000 ML IV SCH ×2 (02:02→11:15)
[2019-09-30 02:03] VITALS: BP_SYST 145
[2019-09-30] MEDS ORDERED: cefTRIAXone 1 GM IVPB PREMIX 50 ML IV ONE (02:11)
[2019-09-30] MEDS: PANTOPRAZOLE SODIUM 40 MG TAB PO SCH (06:26)
[2019-09-30 08:00] VITALS: BP_SYST 113
[2019-09-30 08:02] LABS: BASOPHILS # (AUTO) 0.1 K/uL (0.0-0.2); BASOPHILS % (AUTO) 0.4 % (0.0-2.0); EOSINOPHILS # (AUTO) 0.1 K/uL (0.0-0.4); EOSINOPHILS % (AUTO) 0.8 % (0.0-4.0); HEMATOCRIT 39.4 % (36-54); LYMPHOCYTES # (AUTO) 1.7 K/uL (1.0-5.5); LYMPHOCYTES % (AUTO) 12.1 % (20.5-51.5); MEAN CORPUSCULAR HEMOGLOBIN 32 pg (27-31); MEAN CORPUSCULAR HGB CONC 33 % (32-36); MEAN CORPUSCULAR VOLUME 95 fL (79.0-98.0); MONOCYTES # (AUTO) 1.4 K/uL (0.0-1.0); MONOCYTES % (AUTO) 9.7 % (1.7-9.3); PLATELET COUNT (AUTO) 317 K/uL (130-430); RED BLOOD CELL COUNT(AUTO) 4.13 MIL/uL (4.2-6.2); RED CELL DISTRIBUTION WIDTH 15.8 % (9.0-15.0); WHITE BLOOD COUNT (AUTO) 14.2 K/uL (4.8-10.8)
[2019-09-30 08:21] LABS: ANION GAP 4 (5-15); CALCIUM 8.4 mg/dL (8.4-11.0); CHLORIDE 99 mmol/L (98-107); CREATININE 1.07 mg/dL (0.55-1.30); GLUCOSE 81 mg/dL (70-99); POTASSIUM 3.9 mmol/L (3.5-5.1); SODIUM SERUM 135 mmol/L (136-145); UREA NITROGEN, BLOOD 28 mg/dL (8-21)
[2019-09-30] MEDS: ENOXAPARIN SODIUM 100 MG/ML SYRINGE SUBCUT SCH ×2 (11:11→21:53)
[2019-09-30] MEDS: ENOXAPARIN SODIUM 40 MG/0.4 ML SYRINGE SUBCUT SCH ×2 (11:12→21:54)
[2019-09-30] MEDS ORDERED: LOSARTAN POTASSIUM 50 MG TABLET (COZAAR) PO ONE (11:45)
[2019-09-30] MEDS ORDERED: HYDROCHLOROTHIAZIDE 25 MG TABLET (HCTZ) PO ONE (11:45)
[2019-09-30 12:00] VITALS: BP_SYST 112
[2019-09-30 16:00] VITALS: BP_SYST 109
[2019-09-30] MEDS: VANCOMYCIN HCL 1,500 MG in NS 250 ML IV SCH (19:41)
[2019-09-30] MEDS: CLINDAMYCIN 600 MG in D5W 50 ML IV SCH (19:42)
[2019-09-30 20:00] VITALS: BP_SYST 118
[2019-09-30] MEDS: PREDNISONE 10 MG TABLET PO SCH (20:35)
[2019-09-30 23:46] VITALS: BP_SYST 162
[2019-10-01] MEDS: CLINDAMYCIN 600 MG in D5W 50 ML IV SCH ×5 (00:01→23:21)
[2019-10-01] MEDS: NACL 0.9% 1,000 ML IV SCH ×2 (04:24→15:24)
[2019-10-01] MEDS: VANCOMYCIN HCL 1,500 MG in NS 250 ML IV SCH ×2 (04:28→16:56)
[2019-10-01] MEDS: PANTOPRAZOLE SODIUM 40 MG TAB PO SCH (07:23)
[2019-10-01 08:00] VITALS: BP_SYST 105
[2019-10-01] MEDS: FUROSEMIDE 40 MG TABLET PO SCH ×2 (08:54→08:57)
[2019-10-01] MEDS: PREDNISONE 20 MG TABLET PO SCH (08:54)
[2019-10-01] MEDS: HYDROCHLOROTHIAZIDE 25 MG TABLET (HCTZ) PO SCH (08:55)
[2019-10-01] MEDS: LOSARTAN POTASSIUM 50 MG TABLET (COZAAR) PO SCH (08:58)
[2019-10-01] MEDS: ENOXAPARIN SODIUM 40 MG/0.4 ML SYRINGE SUBCUT SCH (09:06)
[2019-10-01] MEDS: ENOXAPARIN SODIUM 100 MG/ML SYRINGE SUBCUT SCH (09:06)
[2019-10-01] MEDS ORDERED: APIXABAN 2.5 MG TABLET PO ONE (11:45)
[2019-10-01 12:20] VITALS: BP_SYST 124
[2019-10-01 15:12] VITALS: BP_SYST 112
[2019-10-01 17:59] VITALS: BP_SYST 119
[2019-10-01] MEDS: APIXABAN 2.5 MG TABLET PO SCH (20:27)
[2019-10-01] MEDS: PREDNISONE 10 MG TABLET PO SCH (20:27)
[2019-10-01 20:37] VITALS: BP_SYST 157
[2019-10-02 00:20] VITALS: BP_SYST 141
[2019-10-02] MEDS: VANCOMYCIN HCL 1,500 MG in NS 250 ML IV SCH (03:10)
[2019-10-02] MEDS: PANTOPRAZOLE SODIUM 40 MG TAB PO SCH (06:15)
[2019-10-02 07:37] LABS: BASOPHILS % (AUTO) 0.2 % (0.0-2.0); EOSINOPHILS % (AUTO) 0.3 % (0.0-4.0); HEMATOCRIT 36.9 % (36-54); HEMOGLOBIN 12.4 g/dL (14.0-18.0); LYMPHOCYTES # (AUTO) 1.3 K/uL (1.0-5.5); LYMPHOCYTES % (AUTO) 10.3 % (20.5-51.5); MEAN CORPUSCULAR HEMOGLOBIN 32 pg (27-31); MEAN CORPUSCULAR HGB CONC 34 % (32-36); MEAN CORPUSCULAR VOLUME 94 fL (79.0-98.0); MONOCYTES # (AUTO) 1.1 K/uL (0.0-1.0); MONOCYTES % (AUTO) 8.2 % (1.7-9.3); NEUTROPHILS # (AUTO) 10.5 K/uL (1.8-7.7); PLATELET COUNT (AUTO) 365 K/uL (130-430); RED BLOOD CELL COUNT(AUTO) 3.94 MIL/uL (4.2-6.2); RED CELL DISTRIBUTION WIDTH 16.2 % (9.0-15.0)
[2019-10-02 07:58] LABS: ALANINE AMINOTRANSFERASE 23 U/L (12-78); ALBUMIN 2.4 g/dL (3.4-4.8); ANION GAP 4 (5-15); ASPARTATE AMINOTRANSFERASE 17 U/L (10-37); CALCIUM 8.4 mg/dL (8.4-11.0); CHLORIDE 99 mmol/L (98-107); CREATININE 1.23 mg/dL (0.55-1.30); GLUCOSE 101 mg/dL (70-99); POTASSIUM 4.2 mmol/L (3.5-5.1); SODIUM SERUM 137 mmol/L (136-145); TOTAL BILIRUBIN 0.3 mg/dL (0.0-1.0); UREA NITROGEN, BLOOD 24 mg/dL (8-21)
[2019-10-02 08:53] VITALS: BP_SYST 124
[2019-10-02] MEDS: PREDNISONE 20 MG TABLET PO SCH (09:01)
[2019-10-02] MEDS: LOSARTAN POTASSIUM 50 MG TABLET (COZAAR) PO SCH (09:01)
[2019-10-02] MEDS: FUROSEMIDE 40 MG TABLET PO SCH (09:01)
[2019-10-02] MEDS: HYDROCHLOROTHIAZIDE 25 MG TABLET (HCTZ) PO SCH (09:02)
[2019-10-02] MEDS: APIXABAN 2.5 MG TABLET PO SCH ×2 (09:06→21:28)
[2019-10-02] MEDS: LINEZOLID 300 ML IV SCH ×2 (09:10→21:25)
[2019-10-02 12:00] VITALS: BP_SYST 152
[2019-10-02] MEDS ORDERED: EMOLLIENT COMBINATION NO.73 78 GM CREAM..G. TP ONE (15:00)
[2019-10-02] MEDS: NACL 0.9% 1,000 ML IV SCH (15:47)
[2019-10-02 16:00] VITALS: BP_SYST 153
[2019-10-02 20:00] VITALS: BP_SYST 155
[2019-10-02] MEDS: EMOLLIENT COMBINATION NO.73 78 GM CREAM..G. TP SCH (21:00)
[2019-10-02] MEDS: PREDNISONE 10 MG TABLET PO SCH (21:25)
[2019-10-03] VITALS: BP_SYST 150
[2019-10-03] MEDS: PANTOPRAZOLE SODIUM 40 MG TAB PO SCH (06:38)
[2019-10-03 07:16] LABS: BASOPHILS % (AUTO) 0.3 % (0.0-2.0); EOSINOPHILS % (AUTO) 0.3 % (0.0-4.0); HEMATOCRIT 36.7 % (36-54); HEMOGLOBIN 12.3 g/dL (14.0-18.0); LYMPHOCYTES # (AUTO) 1.2 K/uL (1.0-5.5); LYMPHOCYTES % (AUTO) 8.3 % (20.5-51.5); MEAN CORPUSCULAR HEMOGLOBIN 32 pg (27-31); MEAN CORPUSCULAR HGB CONC 34 % (32-36); MEAN CORPUSCULAR VOLUME 94 fL (79.0-98.0); MONOCYTES # (AUTO) 1.2 K/uL (0.0-1.0); MONOCYTES % (AUTO) 8.6 % (1.7-9.3); NEUTROPHILS # (AUTO) 11.5 K/uL (1.8-7.7); NEUTROPHILS % (AUTO) 82.5 % (40.0-70.0); PLATELET COUNT (AUTO) 336 K/uL (130-430); RED BLOOD CELL COUNT(AUTO) 3.91 MIL/uL (4.2-6.2); RED CELL DISTRIBUTION WIDTH 15.7 % (9.0-15.0); WHITE BLOOD COUNT (AUTO) 13.9 K/uL (4.8-10.8)
[2019-10-03 07:36] LABS: ALANINE AMINOTRANSFERASE 26 U/L (12-78); ALBUMIN 2.3 g/dL (3.4-4.8); ANION GAP 4 (5-15); ASPARTATE AMINOTRANSFERASE 22 U/L (10-37); CALCIUM 8.3 mg/dL (8.4-11.0); CHLORIDE 99 mmol/L (98-107); GLUCOSE 111 mg/dL (70-99); SODIUM SERUM 136 mmol/L (136-145); TOTAL BILIRUBIN 0.3 mg/dL (0.0-1.0); UREA NITROGEN, BLOOD 22 mg/dL (8-21)
[2019-10-03 08:31] VITALS: BP_SYST 157
[2019-10-03] MEDS: LINEZOLID 300 ML IV SCH ×2 (08:44→21:35)
[2019-10-03] MEDS: APIXABAN 2.5 MG TABLET PO SCH ×2 (08:45→21:39)
[2019-10-03] MEDS: PREDNISONE 20 MG TABLET PO SCH (08:46)
[2019-10-03] MEDS: HYDROCHLOROTHIAZIDE 25 MG TABLET (HCTZ) PO SCH (08:47)
[2019-10-03] MEDS: LOSARTAN POTASSIUM 50 MG TABLET (COZAAR) PO SCH (08:48)
[2019-10-03] MEDS: FUROSEMIDE 40 MG TABLET PO SCH (08:48)
[2019-10-03] MEDS: EMOLLIENT COMBINATION NO.73 78 GM CREAM..G. TP SCH ×2 (09:03→21:37)
[2019-10-03 12:00] VITALS: BP_SYST 140
[2019-10-03 16:00] VITALS: BP_SYST 138
[2019-10-03 20:00] VITALS: BP_SYST 156
[2019-10-03] MEDS: NACL 0.9% 1,000 ML IV SCH (21:33)
[2019-10-03] MEDS: PREDNISONE 10 MG TABLET PO SCH (21:36)
[2019-10-04] MEDS: PANTOPRAZOLE SODIUM 40 MG TAB PO SCH (06:10)
[2019-10-04 07:19] LABS: ANION GAP 3 (5-15); CALCIUM 8.3 mg/dL (8.4-11.0); CHLORIDE 99 mmol/L (98-107); CREATININE 1.12 mg/dL (0.55-1.30); GLUCOSE 111 mg/dL (70-99); POTASSIUM 4.1 mmol/L (3.5-5.1); SODIUM SERUM 134 mmol/L (136-145); UREA NITROGEN, BLOOD 21 mg/dL (8-21)
[2019-10-04 07:45] VITALS: BP_SYST 139
[2019-10-04] MEDS: PREDNISONE 20 MG TABLET PO SCH (09:36)
[2019-10-04] MEDS: FUROSEMIDE 40 MG TABLET PO SCH (09:37)
[2019-10-04] MEDS: HYDROCHLOROTHIAZIDE 25 MG TABLET (HCTZ) PO SCH (09:38)
[2019-10-04] MEDS: LOSARTAN POTASSIUM 50 MG TABLET (COZAAR) PO SCH (09:39)
[2019-10-04] MEDS: APIXABAN 2.5 MG TABLET PO SCH (09:39)
[2019-10-04] MEDS: LINEZOLID 300 ML IV SCH (09:40)
[2019-10-04] MEDS: EMOLLIENT COMBINATION NO.73 78 GM CREAM..G. TP SCH (09:42)
[2019-10-04 12:49] VITALS: BP_SYST 144
[2019-10-04 15:19] VITALS: BP_SYST 153
[2019-10-04 20:44] VITALS: BP_SYST 146
[2019-10-08] MEDS ORDERED: APIXABAN 2.5 MG TABLET PO SCH (21:00)
== END 2019-10-04 21:30 | DRG 871 ==
LOC: SED 19:10 → STU 22:18
PROVIDERS: ADMIT Internal Medicine Hospice and Palliative Medicine; ATTEND Internal Medicine Hospice and Palliative Medicine
DX: A41.9 Sepsis, unspecified organism (principal); E43 Unspecified severe protein-calorie malnutrition; I82.C11 Acute embolism and thrombosis of right internal jugular vein; L03.113 Cellulitis of right upper limb; L03.116 Cellulitis of left lower limb; E87.1 Hypo-osmolality and hyponatremia; I82.B11 Acute embolism and thrombosis of right subclavian vein; I82.A11 Acute embolism and thrombosis of right axillary vein; I50.30 Unspecified diastolic (congestive) heart failure; Z68.41 Body mass index [BMI] 40.0-44.9, adult; F17.210 Nicotine dependence, cigarettes, uncomplicated; J44.9 Chronic obstructive pulmonary disease, unspecified; E86.0 Dehydration; E66.01 Morbid (severe) obesity due to excess calories; I11.0 Hypertensive heart disease with heart failure; Z77.120 Contact with and (suspected) exposure to mold (toxic); Z82.49 Family history of ischemic heart disease and other diseases of the circulatory system; Z79.899 Other long term (current) drug therapy; B95.62 Methicillin resistant Staphylococcus aureus infection as the cause of diseases classified elsewhere
CPT/HCPCS: 36415; 71045; 80048; 80053; 80061; 81003; 82150-TC; 83036; 83605; 83690-TC; 83735-TC; 83880; 84100-TC; 84439; 84443-TC; 84484; 85025; 85610-TC; 85730-TC; 87040-TC; 87070-TC; 87081; 87186-TC; 93005; 93971; 96372; 99285; G0378; J0696; J1650; J2020; J3370; J3490; J7030; J7050; J7060; J7512

== ENCOUNTER 2019-11-21 05:55 | Emergency (ER) | payer OTHER, BC ==
[~2019-11-21] VITALS: Ht 188 cm; Wt 138.8 kg
[~2019-11-21 05:55] MED LIST changes: -VANC1.5P12 IV
[2019-11-21 05:56] VITALS: BP_SYST 140
--- NOTE | 2019-11-21 05:56 | NUR ---
Placed in room 2 . Placed on knotter hand, blood pressure machine and pulse oximeter. To gown for exam. Side rails up. Report given to Brett PERSON.
--- NOTE | 2019-11-21 05:57 | NUR ---
Patient was wheeled into bed 2 c/o LUE weakness and numbess since 3 am and shortness of breath. Pt denies chest pain. Pt reported headache for three days. Per patient was confused when he woke up stating "arm is numb and it happened when I got off the elevator." Patient is AAOx4 in ED. NO other injuries/complaints per patient or noted.
--- NOTE | 2019-11-21 05:58 | NUR ---
Patient appeared diaphoretic. Pt unable to hold up his upper left extremity.
--- NOTE | 2019-11-21 05:58 | NUR ---
Kulwinder Kothari at bedside examining patient.
--- NOTE | 2019-11-21 06:06 | NUR ---
Off unit for CT via [facility]
--- NOTE | 2019-11-21 06:12 | NUR ---
Blood sent to lab including lactic acid and BC
[2019-11-21] MEDS ORDERED: AMLO5TAB4 PO (06:18)
[2019-11-21] MEDS ORDERED: APIX5TAB4 PO (06:18)
--- NOTE | 2019-11-21 06:18 | NUR ---
Medication reconciliation completed with information provided by RX bottles brought in by , given back to to take home. Any prior medication reconciliation on file was reviewed and corrected.
[2019-11-21 06:20] LABS: BASOPHILS # (AUTO) 0.2 K/uL (0.0-0.2); BASOPHILS % (AUTO) 1.2 % (0.0-2.0); EOSINOPHILS # (AUTO) 0.1 K/uL (0.0-0.4); EOSINOPHILS % (AUTO) 0.8 % (0.0-4.0); HEMATOCRIT 35.6 % (36-54); HEMOGLOBIN 11.8 g/dL (14.0-18.0); LYMPHOCYTES # (AUTO) 1.5 K/uL (1.0-5.5); LYMPHOCYTES % (AUTO) 11.3 % (20.5-51.5); MEAN CORPUSCULAR HEMOGLOBIN 32 pg (27-31); MEAN CORPUSCULAR HGB CONC 33 % (32-36); MEAN CORPUSCULAR VOLUME 97 fL (79.0-98.0); NEUTROPHILS # (AUTO) 10.3 K/uL (1.8-7.7); NEUTROPHILS % (AUTO) 78.7 % (40.0-70.0); PLATELET COUNT (AUTO) 335 K/uL (130-430); RED BLOOD CELL COUNT(AUTO) 3.68 MIL/uL (4.2-6.2); RED CELL DISTRIBUTION WIDTH 17.8 % (9.0-15.0); WHITE BLOOD COUNT (AUTO) 13.1 K/uL (4.8-10.8)
--- NOTE | 2019-11-21 06:25 | NUR ---
ER Dr. Kothari at bedside re-examining patient. patient is able to hold up left arm longer than before. speed belt sander tender is stronger
[2019-11-21 06:34] LABS: ANION GAP 6 (5-15); CALCIUM 8.4 mg/dL (8.4-11.0); CHLORIDE 100 mmol/L (98-107); CREATININE 1.53 mg/dL (0.55-1.30); GLUCOSE 112 mg/dL (70-99); POTASSIUM 4.1 mmol/L (3.5-5.1); SODIUM SERUM 137 mmol/L (136-145); UREA NITROGEN, BLOOD 33 mg/dL (8-21)
[2019-11-21 06:35] LABS: INR 1.1 (0.80-1.20); PROTHROMBIN TIME 10.6 SECS (9.5-12.5)
[2019-11-21 06:40] LABS: ALANINE AMINOTRANSFERASE 25 U/L (12-78); ALBUMIN 2.9 g/dL (3.4-4.8); ASPARTATE AMINOTRANSFERASE 23 U/L (10-37); TOTAL BILIRUBIN 0.3 mg/dL (0.0-1.0)
--- NOTE | 2019-11-21 06:45 | NUR ---
Dr. Kothari speaking with Dr. Mason from [place] [facility] in regards to patient.
--- NOTE | 2019-11-21 07:00 | NUR ---
Urine was collected and sent to lab.
[2019-11-21 07:22] VITALS: BP_SYST 140
[2019-11-21] MEDS ORDERED: IOHEXOL 100 ML IV ONE (07:23)
--- NOTE | 2019-11-21 07:26 | NUR ---
Patient to be transferred to [facility]. Is being transferred due to higher level of care. Receiving facility has accepting physician and available space. ER physician has signed transfer form. Patient or responsible alliance party has agreed to transfer and signed form. Patient belongings inventoried and will be sent with patient. Copy of nursing notes, lab reports, EKG, Physicians Orders and X-rays to be sent with patient. Report called to Constantin at receiving facility. Receiving physician is Dr. Mason. [facility] ambulance service has been called for transfer
== END 2019-11-21 07:22 | disposition short-term general hospital (02) ==
LOC: SED 05:55
DX: I63.9 Cerebral infarction, unspecified (principal); R79.89 Other specified abnormal findings of blood chemistry; I11.0 Hypertensive heart disease with heart failure; I50.9 Heart failure, unspecified; J44.9 Chronic obstructive pulmonary disease, unspecified; Z86.718 Personal history of other venous thrombosis and embolism; Z79.899 Other long term (current) drug therapy
CPT/HCPCS: 36415; 70450; 70496; 71045; 80053; 82962; 84484; 85025; 85610; 85730; 87081; 93005; 99285; Q9967; 96365; 96368; 96372; 96375